=== PATIENT | male | born 1975 | race Caucasian/White ===

== ENCOUNTER 2019-12-01 20:40 | Emergency (ER) | payer BC ==
--- NOTE | 2019-12-01 21:08 | EDM.PDOC ---
ED HPI GENERAL MEDICAL PROBLEM - General Chief Complaint: Respiratory Problem Stated Complaint: coughing Time Seen by Provider: 12/01/19 21:08 Source of Information: Reports: Patient History Limitations: Reports: No Limitations - History of Present Illness Onset: Today Duration: Hour(s): Location: Reports: Chest, Generalized Quality: Reports: Ache Severity: Moderate Improves with: Reports: None Worsens with: Reports: Breathing Context: Reports: Activity Associated Symptoms: Reports: Fever/Chills Headache Pain Score (Numeric/FACES): 3 - Related Data Allergies Allergy/AdvReac Type Severity Reaction Status Date / Time No Known Allergies Allergy Verified 12/01/19 20:57 Home Meds: Home Meds Ascorbic Acid [Vitamin C] 1,000 mg PO DAILY 12/01/19 [History] Lysine 1,000 mg PO DAILY 12/01/19 [History] Oseltamivir [Tamiflu] 75 mg PO BID 3 Days #6 cap 12/01/19 [Rx] valACYclovir HCl [valACYclovir] 2,000 mg PO BID 12/01/19 [History] Past Medical History - Past Health History Medical/Surgical History: Denies Medical/Surgical History Social & Family History - Family History Family Medical History: Noncontributory - Tobacco Use Smoking Status *Q: Never Smoker Second Hand Smoke Exposure: No - Caffeine Use Caffeine Use: Reports: Coffee, Soda - Alcohol Use Days Per Week of Alcohol Use: 3 Number of Drinks Per Day: 3 Total Drinks Per Week: 9 - Recreational Drug Use Recreational Drug Use: No ED ROS GENERAL - Review of Systems Review Of Systems: See Below Constitutional: Reports: Fever, Chills HEENT: Reports: No Symptoms Respiratory: Reports: Cough Cardiovascular: Reports: No Symptoms Endocrine: Reports: Fatigue GI/Abdominal: Reports: No Symptoms : Reports: No Symptoms Musculoskeletal: Reports: Muscle Pain, Muscle Stiffness Skin: Reports: No Symptoms Neurological: Reports: No Symptoms Psychiatric: Reports: No Symptoms Hematologic/Lymphatic: Reports: No Symptoms Immunologic: Reports: No Symptoms ED EXAM, GENERAL - Physical Exam Exam: See Below General Appearance: Alert, WD/WN, No Apparent Distress Ears: Normal External Exam, Normal Canal, Hearing Grossly Normal, Normal TMs Nose: Normal Inspection, Normal Mucosa, No Blood, Nasal Deformity (V8 at septum) Throat/Mouth: Normal Inspection, Normal Lips, Normal Teeth, Normal Gums, Normal Oropharynx, Normal Voice, No Airway Compromise Head: Atraumatic, Normocephalic Neck: Normal Inspection, Supple, Non-Tender, Full Range of Motion Respiratory/Chest: Lungs Clear, Normal Breath Sounds, Other (Cough induced with any respiratory effort) Cardiovascular: Normal Peripheral Pulses GI/Abdominal: Normal Bowel Sounds, Soft, Non-Tender, No Organomegaly, No Distention, No Abnormal Bruit, No Mass (Male) Exam: Deferred Rectal (Males) Exam: Deferred Extremities: Normal Inspection Neurological: Alert, Oriented, CN II-XII Intact, Normal Cognition, Normal Gait, Normal Reflexes, No Motor/Sensory Deficits Psychiatric: Normal Affect, Normal Mood Skin Exam: Warm, Dry Course - Vital Signs Last Recorded V/S: Last Vital Signs Temp 37.3 C 12/01/19 20:52 Pulse 96 12/01/19 20:52 Resp 18 12/01/19 20:52 BP 162/98 H 12/01/19 20:52 Pulse Ox 95 12/01/19 20:52 Departure - Departure Time of Disposition: 21:51 Disposition: Home, Self-Care 01 Condition: Good Clinical Impression: Influenza A virus present, Cough - Discharge Information *PRESCRIPTION DRUG MONITORING PROGRAM REVIEWED*: Not Applicable *COPY OF PRESCRIPTION DRUG MONITORING REPORT IN PATIENT GUY: Not Applicable Instructions: Influenza, Adult, [id number] Forms: ED Department Discharge Additional Instructions: Take Tamiflu 75mg twice daily. 4 provided here, 6 more at pharmacy. Increase your fluids. Home rest. Contagious for 24 hours after you are free of fever without the use of any antipyretics. Recheck as needed or if cough and fever persist or worsen after 5 days. Sepsis Event Note - Evaluation Sepsis Screening Result: No Definite Risk - Focused Exam Vital Signs: Vital Signs Temp Pulse Resp BP Pulse Ox 12/01/19 20:52 37.3 C 96 18 162/98 H 95 Date Exam was Performed: 12/01/19 Time Exam was Performed: 21:44 - Problem List & Annotations (1) Fever with chills SNOMED Code(s): 555146166 Code(s): R50.9 - FEVER, UNSPECIFIED Status: Acute (2) Cough SNOMED Code(s): 11055199 Code(s): R05 - COUGH Status: Acute (3) Influenza A virus present SNOMED Code(s): 160771642851 Code(s): J10.1 - FLU DUE TO OTH IDENT INFLUENZA VIRUS W OTH RESP MANIFEST Status: Acute - Problem List Review Problem List Initiated/Reviewed/Updated: Yes - Assessment/Plan Plan: Take Tamiflu 75mg twice daily. 4 provided here, 6 more at pharmacy. Increase your fluids. Home rest. Contagious for 24 hours after you are free of fever without the use of any antipyretics. Recheck as needed or if cough and fever persist or worsen after 5 days.
[2019-12-01] MEDS ORDERED: Codeine/guaiFENesin 100-10 MG/5 ML Syrup 5 ML Cup PO ONE (21:45)
[2019-12-01] MEDS: Oseltamivir 75 MG Cap PO SCH ×3 (23:29→23:31)
== END 2019-12-01 22:10 | disposition home or self-care (01) ==
LOC: KA.ED 20:40
DX: J10.1 Influenza due to other identified influenza virus with other respiratory manifestations (principal)
CPT/HCPCS: 87804; 99283; A9270